=== PATIENT | male | born 1965 | race Hispanic/Latino ===

== ENCOUNTER 2021-01-17 12:16 | Inpatient (IN) | payer BC ==
[~2021-01-17] VITALS: Ht 170.2 cm; Wt 88.5 kg
[~2021-01-17 12:16] MED LIST: CLINDAMYCIN HC300 MG PO; FLAGYL500 MG PO; PANTOPRAZOLE SO40 MG PO; PROPRANOLOL HCL10 MG PO; PROTONIX40 MG/ML PO; SMZ/TMP DS PO
[2021-01-17 12:53] LABS: CLARITY,URINE SL CLOUDY (CLEAR); COLOR,URINE ORANGE (YELLOW)
[2021-01-17 12:54] LABS: KETONES,URINE NEGATIVE (NEGATIVE); LEUKOCYTE ESTERASE ,URINE NEGATIVE (NEGATIVE); NITRITE,URINE NEGATIVE (NEGATIVE); PROTEIN,URINE DIPSTICK NEGATIVE (NEGATIVE); URINE UROBILINOGEN 0.2 mg/dL (0.2 - 1)
[2021-01-17 12:54] LABS: BASOPHILS % 0.3 % (0.0-1.0); EOSINOPHILS % 0.1 % (0.0-6.0); HEMATOCRIT 35.1 % (38.2-49.6); HEMOGLOBIN 12.2 g/dL (14.0-18.0); LYMPHOCYTES # (AUTO) 0.9 (1.0-3.2); LYMPHOCYTES % 8.4 % (18.0-39.1); MEAN CORPUSCULAR HEMOGLOBIN 32.4 pg (28-32); MEAN CORPUSCULAR HGB CONC 34.8 g/dL (31-35); MEAN CORPUSCULAR VOLUME 93.1 fL (81-99); MONOCYTES % 8.7 % (4.4-11.3); NEUTROPHILS # (AUTO) 8.9 (2.1-6.9); NEUTROPHILS % 81.7 % (38.7-80.0); PLATELET COUNT 60 x10e3/uL (140-360); RED BLOOD COUNT 3.77 x10e6/uL (4.3-5.7); RED CELL DISTRIBUTION WIDTH 13.2 % (11.7-14.4)
[2021-01-17 12:57] LABS: BACTERIA,URINE RARE /HPF; EPITHELIAL CELLS,URINE FEW /LPF; RBC,URINE 0-5 /HPF (0-5); WBC,URINE (MAN) 0-5 /HPF (0-5)
[2021-01-17 13:08] LABS: ALANINE AMINOTRANSFERASE 35 IU/L (0-55); ALBUMIN 3.2 g/dL (3.5-5.0); ALBUMIN/GLOBULIN RATIO 0.7 (0.8-2.0); ALKALINE PHOSPHATASE 88 IU/L (40-150); ANION GAP 13.1 mmol/L (8-16); BLOOD UREA NITROGEN 9 mg/dL (7-26); BUN/CREATININE RATIO 13 (6-25); CALCIUM 8.8 mg/dL (8.4-10.2); CARBON DIOXIDE 22 mmol/L (22-29); CHLORIDE 105 mmol/L (98-107); CREATINE KINASE 82 IU/L (30-200); CREATININE, SERUM 0.71 mg/dL (0.72-1.25); EST GLOMERULAR FILTRATION RATE > 60 ML/MIN (60-); GLUCOSE 113 mg/dL (74-118); POTASSIUM 3.1 mmol/L (3.5-5.1); SODIUM 137 mmol/L (136-145)
[2021-01-17] MEDS ORDERED: CEFEPIME HCL 1GM 1 GM in SODIUM CHLORIDE 0.9% 50ML 50 ML IV STA (14:43)
[2021-01-17] MEDS ORDERED: MORPHINE SULFATE INJ 2 MG/ML SYR IV PRN ×2 (15:00→19:00)
[2021-01-17] MEDS ORDERED: ONDANSETRON HCL INJ 2MG/ML 2ML 2 MG/ML VIAL IV PRN (15:00)
[2021-01-17] MEDS ORDERED: MORPHINE SULFATE INJ 4 MG/ML INJ 1ML IV PRN (15:00)
[2021-01-17] MEDS ORDERED: IOPAMIDOL 370 MG/ML 200 ML INFUS..BTL INJ ONE (16:54)
[2021-01-17] MEDS ORDERED: SODIUM CHLORIDE 0.9% 50ML 50 ML ONE (16:54)
[2021-01-17] MEDS ORDERED: ACETAMINOPHEN 325 MG TAB PO PRN (19:00)
[2021-01-17 20:21] VITALS: BP 130/72
[2021-01-17 20:30] VITALS: BP 130/62
[2021-01-17] MEDS: SODIUM CHLORIDE 0.9% 1000ML 1,000 ML IV SCH ×2 (21:00→23:00)
[2021-01-18 06:46] LABS: BASOPHILS % 0.4 % (0.0-1.0); EOSINOPHILS % 0.6 % (0.0-6.0); HEMATOCRIT 30.2 % (38.2-49.6); HEMOGLOBIN 10.3 g/dL (14.0-18.0); LYMPHOCYTES # (AUTO) 0.6 (1.0-3.2); LYMPHOCYTES % 12.6 % (18.0-39.1); MEAN CORPUSCULAR HEMOGLOBIN 32.6 pg (28-32); MEAN CORPUSCULAR HGB CONC 34.1 g/dL (31-35); MEAN CORPUSCULAR VOLUME 95.6 fL (81-99); MONOCYTES # (AUTO) 0.4 (0.2-0.8); MONOCYTES % 9.4 % (4.4-11.3); NEUTROPHILS # (AUTO) 3.6 (2.1-6.9); NEUTROPHILS % 76.4 % (38.7-80.0); PLATELET COUNT 50 x10e3/uL (140-360); RED BLOOD COUNT 3.16 x10e6/uL (4.3-5.7); RED CELL DISTRIBUTION WIDTH 13.1 % (11.7-14.4)
[2021-01-18 07:34] LABS: ALANINE AMINOTRANSFERASE 25 IU/L (0-55); ALBUMIN 2.6 g/dL (3.5-5.0); ALBUMIN/GLOBULIN RATIO 0.8 (0.8-2.0); ALKALINE PHOSPHATASE 72 IU/L (40-150); ANION GAP 11.8 mmol/L (8-16); BLOOD UREA NITROGEN 9 mg/dL (7-26); BUN/CREATININE RATIO 14 (6-25); CARBON DIOXIDE 23 mmol/L (22-29); CHLORIDE 107 mmol/L (98-107); CREATININE, SERUM 0.63 mg/dL (0.72-1.25); EST GLOMERULAR FILTRATION RATE > 60 ML/MIN (60-); GLUCOSE 102 mg/dL (74-118); POTASSIUM 3.8 mmol/L (3.5-5.1); SODIUM 138 mmol/L (136-145)
[2021-01-18] MEDS: PROPRANOLOL HCL 10 MG TAB PO SCH ×2 (07:39→16:25)
[2021-01-18] MEDS: LEVOFLOXACIN 500MG/D5W 100ML 100 ML IV SCH (07:39)
[2021-01-18] MEDS: SODIUM CHLORIDE 0.9% 1000ML 1,000 ML IV SCH ×3 (07:39→20:23)
[2021-01-18] MEDS: PANTOPRAZOLE SOD 40 MG TABEC PO SCH ×2 (07:40→16:25)
[2021-01-18 08:19] VITALS: BP 109/61
[2021-01-18 09:18] VITALS: BP 109/61
[2021-01-18 11:47] VITALS: BP 108/73
[2021-01-18 16:21] VITALS: BP 109/63
[2021-01-18 20:00] VITALS: BP 115/72
[2021-01-18 20:20] VITALS: BP 115/72
[2021-01-19] VITALS (7 sets, daily range): BP systolic 99–138; BP diastolic 58–72
[2021-01-19] MEDS: SODIUM CHLORIDE 0.9% 1000ML 1,000 ML IV SCH ×3 (04:05→20:43)
[2021-01-19] MEDS ORDERED: ONDANSETRON HCL 4 MG ORAL DISINTEGRATING TAB PO PRN (09:30)
[2021-01-19] MEDS: PANTOPRAZOLE SOD 40 MG TABEC PO SCH ×2 (09:48→18:52)
[2021-01-19] MEDS: PROPRANOLOL HCL 10 MG TAB PO SCH ×2 (09:48→18:51)
[2021-01-19] MEDS: LEVOFLOXACIN 500MG/D5W 100ML 100 ML IV SCH (09:48)
[2021-01-20] VITALS (8 sets, daily range): BP systolic 99–132; BP diastolic 58–88
[2021-01-20] MEDS: SODIUM CHLORIDE 0.9% 1000ML 1,000 ML IV SCH ×3 (03:49→19:42)
[2021-01-20] MEDS: PROPRANOLOL HCL 10 MG TAB PO SCH ×2 (07:49→16:51)
[2021-01-20] MEDS: LEVOFLOXACIN 500MG/D5W 100ML 100 ML IV SCH (09:01)
[2021-01-20] MEDS: PANTOPRAZOLE SOD 40 MG TABEC PO SCH ×2 (09:01→16:51)
[2021-01-21] VITALS: BP 123/65
[2021-01-21] MEDS: SODIUM CHLORIDE 0.9% 1000ML 1,000 ML IV SCH (03:56)
[2021-01-21 05:37] VITALS: BP 118/65
[2021-01-21] MEDS: LEVOFLOXACIN 500MG/D5W 100ML 100 ML IV SCH (08:00)
[2021-01-21 08:51] VITALS: BP 129/76
[2021-01-21] MEDS: PROPRANOLOL HCL 10 MG TAB PO SCH (09:00)
[2021-01-21] MEDS: PANTOPRAZOLE SOD 40 MG TABEC PO SCH (09:00)
[2021-01-21 09:03] VITALS: BP 129/76
[2021-01-21 12:32] VITALS: BP 132/95
[2021-01-21] MEDS ORDERED: LEVOFLOXACIN500 MG PO (14:02)
== END 2021-01-21 14:34 | disposition home or self-care (01) | DRG 728 ==
LOC: ER 12:21 → ERHOLD 14:57 → MED/SURG2 20:11
PROVIDERS: ADMIT Internal Medicine; ATTEND Internal Medicine
DX: N45.1 Epididymitis (principal); K76.6 Portal hypertension; K74.60 Unspecified cirrhosis of liver; B18.2 Chronic viral hepatitis C; D64.9 Anemia, unspecified; E87.6 Hypokalemia; D72.829 Elevated white blood cell count, unspecified; F17.210 Nicotine dependence, cigarettes, uncomplicated; N43.3 Hydrocele, unspecified; N43.40 Spermatocele of epididymis, unspecified; Z20.822 Contact with and (suspected) exposure to COVID-19; D69.59 Other secondary thrombocytopenia; F17.200 Nicotine dependence, unspecified, uncomplicated; E66.9 Obesity, unspecified; Z68.30 Body mass index [BMI] 30.0-30.9, adult
CPT/HCPCS: 36415; 74177; 76870; 80053; 81001; 82550; 82553; 83880; 84484; 85025; 87086; 93976; 96361; 99285; J1956; J7030; Q9967; U0002